=== PATIENT | female | born 1960 | race Caucasian/White ===

== ENCOUNTER 2022-03-15 06:48 | Day surgery (SDC) | payer OTHER ==
[~2022-03-15] VITALS: Ht 175.3 cm; Wt 127.0 kg
[2022-03-15] MEDS ORDERED: GLYCOPYRROLATE 0.2 MG/ML VIAL ONE (09:55)
[2022-03-15] MEDS ORDERED: LR 1,000 ML IV.SOLN IV ONE (09:55)
[2022-03-15] MEDS ORDERED: ROCURONIUM BROMIDE 10 MG/ML (ZEMURON) ONE (09:55)
[2022-03-15] MEDS ORDERED: NEOSTIGMINE METHYLSULFATE 1 MG/ML, 10 ML VIAL ONE (09:55)
[2022-03-15] MEDS ORDERED: ONDANSETRON HCL 4 MG/2 ML VIAL ONE ×2 (09:55→11:18)
[2022-03-15] MEDS ORDERED: PROPOFOL 200MG/ 20ML VIAL (DIPRIVAN) IV ONE (09:55)
[2022-03-15] MEDS ORDERED: DESFLURANE 15 MIN GAS INH ONE (09:55)
[2022-03-15] MEDS ORDERED: MIDAZOLAM HCL 2 MG/2 ML VIAL (VERSED) ONE (09:55)
[2022-03-15] MEDS ORDERED: DEXAMETHASONE SOD PHOSPHATE 4 MG/ML VIAL ONE (09:55)
[2022-03-15] MEDS ORDERED: fentaNYL CITRATE/PF 100 MCG/2 ML AMP ONE (09:55)
[2022-03-15] MEDS ORDERED: hydrALAZINE HCL 20 MG/ML VIAL IVP PRN (10:30)
[2022-03-15] MEDS ORDERED: METOCLOPRAMIDE HCL 10 MG/2 ML VIAL IVP PRN (10:30)
[2022-03-15] MEDS ORDERED: LR 1,000 ML IV SCH (10:30)
[2022-03-15] MEDS ORDERED: HYDROmorphone 1 MG/ML INJ. CARTRIDGE IVP PRN ×2 (10:30)
[2022-03-15] MEDS ORDERED: LABETALOL 100 MG/ 20ML VIAL IVP PRN (10:30)
[2022-03-15] MEDS ORDERED: IBUPROFEN 800 MG TABLET PO PRN (10:45)
[2022-03-15] MEDS ORDERED: ONDANSETRON HCL 4 MG/2 ML VIAL IM PRN (10:45)
[2022-03-15 13:44] VITALS: BP_SYST 135
== END 2022-03-15 13:00 | disposition home or self-care (01) ==
LOC: SDS 06:48 → SMU 06:51 → SDS 13:00
PROVIDERS: ATTEND Obstetrics & Gynecology
DX: N95.0 Postmenopausal bleeding (principal); N84.0 Polyp of corpus uteri; R93.89 Abnormal findings on diagnostic imaging of other specified body structures; E66.01 Morbid (severe) obesity due to excess calories; E78.5 Hyperlipidemia, unspecified; Z79.899 Other long term (current) drug therapy; Z20.822 Contact with and (suspected) exposure to COVID-19
CPT/HCPCS: 36415 ×2; 58558; 87426; 87635; 88305; C1819; J1100; J2405; J2704; J2710; J3010; J3465; J3490; J7120; U0003